=== PATIENT | female | born 1955 | race Caucasian/White ===

== ENCOUNTER 2023-08-18 12:31 | Inpatient (IN) | payer BC, MEDICAID ==
[~2023-08-18] VITALS: Ht 152.4 cm; Wt 83.0 kg
[2023-08-18 14:22] LABS: BASOPHILS # (AUTO) 0.1 X10'3 (0-0.2); BASOPHILS % (AUTO) 0.8 % (0-1); EOSINOPHILS # (AUTO) 0.1 X10'3 (0-0.9); EOSINOPHILS % (AUTO) 0.9 % (0-6); HEMOGLOBIN 14.4 g/dl (12.0-16.0); LYMPHOCYTES # (AUTO) 3.4 X10'3 (1.1-4.8); LYMPHOCYTES % (AUTO) 26.2 % (21-51); MEAN CORPUSCULAR HEMOGLOBIN 31.9 PG (27.0-31.0); MEAN CORPUSCULAR HGB CONC 34.4 g/dL (33.0-36.5); MEAN CORPUSCULAR VOLUME 92.7 FL (78-98); MONOCYTES # (AUTO) 1.1 X10'3 (0-0.9); MONOCYTES % (AUTO) 8.7 % (2-12); NEUTROPHILS # (AUTO) 8.3 X10'3 (1.8-7.7); NEUTROPHILS % (AUTO) 63.4 % (42-75); PLATELET COUNT 387 X10'3 (140-440); RED BLOOD COUNT 4.53 X10'6 (4.20-5.60); RED CELL DISTRIBUTION WIDTH 13.5 % (11.5-14.5); WHITE BLOOD COUNT 13.1 X10'3 (4.5-11.0)
[2023-08-18] MEDS: normal saline 1000ML IV soln IVB ONE (14:25)
[2023-08-18] MEDS ORDERED: iohexol 350MG/ML 100ml bottle IV ONE (14:34)
[2023-08-18 14:56] LABS: ALBUMIN 3.4 G/DL (3.4-5.0); ANION GAP 12 (8-16); BLOOD UREA NITROGEN 24 MG/DL (7-18); CALCIUM 9.3 MG/DL (8.5-10.1); CHLORIDE 101 MMOL/L (99-107); CREATININE 1.71 MG/DL (0.40-0.90); GLUCOSE 165 MG/DL (70-104); POTASSIUM 4.1 MMOL/L (3.5-5.1); SODIUM 136 MMOL/L (135-145); TOTAL CARBON DIOXIDE 22.8 MMOL/L (24-32); eCRCL 23 ML/MIN; eGFR 30 ML/MIN
[2023-08-18 14:57] LABS: MAGNESIUM 1.7 MG/DL (1.5-2.4)
[2023-08-18] MEDS: aspirin 325mg tablet PO ONE (16:53)
[2023-08-18] MEDS: normal saline 1000ml 1,000 ML IV SCH (16:59)
[2023-08-18 17:38] LABS: HEMOGLOBIN A1C 9.8 % (4.5-6.2)
[2023-08-18 18:20] LABS: BILIRUBIN,URINE NEGATIVE (Neg); CLARITY,URINE SLIGHTLY CLOUDY (Clear); COLOR,URINE YELLOW (Yellow); GLUCOSE, URINE NEGATIVE (Neg); KETONES,URINE NEGATIVE (Neg); LEUKOCYTE ESTERASE ,URINE NEGATIVE (Neg); NITRITES, URINE NEGATIVE (Neg); OCCULT BLOOD,URINE NEGATIVE (Neg); PH,URINE 5.5 (4.8-8.0); PROTEIN,URINE TRACE mg/dl (Neg); UROBILINOGEN,URINE 0.2 E.U/dL (0.2-1.0)
[2023-08-18 18:24] LABS: UA COLLECTION TYPE FOLEY CATH
[2023-08-18 18:32] LABS: SQUAMOUS EPITHELIAL CELL,UR FEW /LPF (FEW)
[2023-08-18 18:36] LABS: RBC,URINE 0-2 /HPF (0-2)
[2023-08-18 18:37] LABS: FINE GRANULAR CAST 0-3 /LPF (NEGATIVE)
[2023-08-18 18:39] LABS: BACTERIA,URINE NONE SEEN /HPF (Neg)
[2023-08-18 20:00] VITALS: RESP 17; O2SAT 96
[2023-08-18] MEDS ORDERED: glucagon, human recombinant 1mg kit SUBCUT PRN (20:05)
[2023-08-18] MEDS ORDERED: INSULIN LISPRO 100 UNIT/ML INSULN.PEN MULTI-DOSE SQ SCH (20:05)
[2023-08-18] MEDS ORDERED: dextrose 50%-water 50ml dispensing syringe IV PRN ×2 (20:05)
[2023-08-18] MEDS ORDERED: DEXTROSE 15 GM of carb/4 tabs (each vial/BOTTLE has 4 tablets) PO PRN ×2 (20:05)
[2023-08-18 20:26] VITALS: BP 138/66; PULSE 66; RESP 17; TEMP 97.8; O2SAT 98
[2023-08-18] MEDS: MESSAGE TO PHARMACY PO ONE (20:56)
[2023-08-18] MEDS: CefTRIAXone/D5W-Rocephin 1gm 50 ML IV ONE (21:29)
[2023-08-18] MEDS: insulin glargine (Lantus) pen - multi-dose SQ SCH (21:54)
[2023-08-18 22:42] VITALS: RESP 16; O2SAT 97
[2023-08-18 23:13] VITALS: BP 118/56; PULSE 59; RESP 15; TEMP 97.7; O2SAT 98
[2023-08-19 01:54] VITALS: BP 147/63; PULSE 62; RESP 15; TEMP 97; O2SAT 98
[2023-08-19 07:21] LABS: ALANINE AMINOTRANSFERASE 20 U/L (12-78); ALBUMIN 2.7 G/DL (3.4-5.0); ALBUMIN/GLOBULIN RATIO 0.8 (1.1-1.5); ALKALINE PHOSPHATASE 100 IU/L (46-116); ANION GAP 9 (8-16); ASPARTATE AMINO TRANSFERASE 18 U/L (10-37); BILIRUBIN,TOTAL 0.4 MG/DL (0.1-1.0); BLOOD UREA NITROGEN 20 MG/DL (7-18); BUN/CREATININE RATIO 16.9 (10.0-20.0); CHLORIDE 105 MMOL/L (99-107); CHOL/HDL RATIO 2.4 (0.00-4.99); CHOLESTEROL 94 MG/DL (0-200); CREATININE 1.18 MG/DL (0.40-0.90); GLUCOSE 143 MG/DL (70-104); HDL CHOLESTEROL 39 MG/DL (35-60); LDL CHOLESTEROL 32 MG/DL (50-100); POTASSIUM 3.5 MMOL/L (3.5-5.1); SODIUM 137 MMOL/L (135-145); TOTAL CARBON DIOXIDE 23.5 MMOL/L (24-32); TRIGLYCERIDES 178 MG/DL (20-135); eCRCL 34 ML/MIN; eGFR 46 ML/MIN
[2023-08-19 08:00] VITALS: RESP 18; O2SAT 98
[2023-08-19] MEDS: aspirin 325mg tablet PO SCH (08:12)
[2023-08-19] MEDS: clopidogrel 75mg tablet PO SCH (08:12)
[2023-08-19] MEDS: CefTRIAXone/D5W-Rocephin 1gm 50 ML IV SCH (08:12)
[2023-08-19 08:20] LABS: BASOPHILS % (AUTO) 0.5 % (0-1); EOSINOPHILS # (AUTO) 0.2 X10'3 (0-0.9); EOSINOPHILS % (AUTO) 1.9 % (0-6); HEMATOCRIT 36.7 % (35.0-45.0); HEMOGLOBIN 12.7 g/dl (12.0-16.0); LYMPHOCYTES # (AUTO) 2.8 X10'3 (1.1-4.8); LYMPHOCYTES % (AUTO) 31.9 % (21-51); MEAN CORPUSCULAR HEMOGLOBIN 32.1 PG (27.0-31.0); MEAN CORPUSCULAR HGB CONC 34.5 g/dL (33.0-36.5); MEAN PLATELET VOLUME 7.2 FL (7.4-10.4); MONOCYTES # (AUTO) 0.7 X10'3 (0-0.9); MONOCYTES % (AUTO) 7.5 % (2-12); NEUTROPHILS # (AUTO) 5.2 X10'3 (1.8-7.7); NEUTROPHILS % (AUTO) 58.2 % (42-75); PLATELET COUNT 289 X10'3 (140-440); RED BLOOD COUNT 3.95 X10'6 (4.20-5.60); RED CELL DISTRIBUTION WIDTH 13.6 % (11.5-14.5); WHITE BLOOD COUNT 8.9 X10'3 (4.5-11.0)
[2023-08-19] MEDS: insulin Lispro (HumaLOG) vial - multi-dose SQ SCH (09:43)
[2023-08-19 11:00] VITALS: BP 127/67; PULSE 61; RESP 18; TEMP 98.1; O2SAT 98
[2023-08-19] MEDS ORDERED: LISI20TA28 PO (14:44)
[2023-08-19] MEDS ORDERED: CLOP75TA34 PO (14:44)
[2023-08-19] MEDS ORDERED: ATOR40TA72 PO (14:44)
[2023-08-19] MEDS ORDERED: LISI30TA4 PO (14:44)
[2023-08-19] MEDS ORDERED: METF-1203 PO (14:44)
[2023-08-19 18:00] VITALS: BP 144/66; PULSE 66; RESP 16; TEMP 96.6; O2SAT 98
[2023-08-19 20:00] VITALS: RESP 17; O2SAT 95
[2023-08-19 22:00] VITALS: BP 138/63; PULSE 70; RESP 18; TEMP 97.4; O2SAT 98
[2023-08-20 02:18] VITALS: BP 142/71; PULSE 58; RESP 15; TEMP 97.1; O2SAT 97
[2023-08-20 06:00] VITALS: BP 156/76; PULSE 59; RESP 15; TEMP 98.2; O2SAT 100
[2023-08-20 08:00] VITALS: RESP 17; O2SAT 95
[2023-08-20 08:58] LABS: BASOPHILS # (AUTO) 0.1 X10'3 (0-0.2); BASOPHILS % (AUTO) 0.8 % (0-1); EOSINOPHILS # (AUTO) 0.1 X10'3 (0-0.9); HEMATOCRIT 38.5 % (35.0-45.0); HEMOGLOBIN 13.1 g/dl (12.0-16.0); LYMPHOCYTES # (AUTO) 2.5 X10'3 (1.1-4.8); LYMPHOCYTES % (AUTO) 34.8 % (21-51); MEAN CORPUSCULAR HEMOGLOBIN 31.7 PG (27.0-31.0); MEAN CORPUSCULAR VOLUME 93.1 FL (78-98); MEAN PLATELET VOLUME 7.3 FL (7.4-10.4); MONOCYTES # (AUTO) 0.5 X10'3 (0-0.9); NEUTROPHILS % (AUTO) 55.4 % (42-75); PLATELET COUNT 318 X10'3 (140-440); RED BLOOD COUNT 4.14 X10'6 (4.20-5.60); RED CELL DISTRIBUTION WIDTH 13.4 % (11.5-14.5); WHITE BLOOD COUNT 7.2 X10'3 (4.5-11.0)
[2023-08-20 09:37] LABS: ALANINE AMINOTRANSFERASE 19 U/L (12-78); ALBUMIN 2.9 G/DL (3.4-5.0); ALBUMIN/GLOBULIN RATIO 0.8 (1.1-1.5); ALKALINE PHOSPHATASE 112 IU/L (46-116); ANION GAP 9 (8-16); ASPARTATE AMINO TRANSFERASE 18 U/L (10-37); BILIRUBIN,TOTAL 0.3 MG/DL (0.1-1.0); BLOOD UREA NITROGEN 15 MG/DL (7-18); BUN/CREATININE RATIO 16.5 (10.0-20.0); CALCIUM 8.2 MG/DL (8.5-10.1); CHLORIDE 105 MMOL/L (99-107); CREATININE 0.91 MG/DL (0.40-0.90); GLUCOSE 129 MG/DL (70-104); POTASSIUM 3.5 MMOL/L (3.5-5.1); SODIUM 137 MMOL/L (135-145); TOTAL CARBON DIOXIDE 23.3 MMOL/L (24-32); TOTAL PROTEIN 6.5 G/DL (6.4-8.2); eCRCL 44 ML/MIN; eGFR 62 ML/MIN
[2023-08-20 11:00] VITALS: BP 157/77; PULSE 68; RESP 22; TEMP 98.3; O2SAT 96
[2023-08-20] MEDS ORDERED: ASPI-1265 PO (11:12)
== END 2023-08-20 17:31 | disposition home or self-care (01) | DRG 871 ==
LOC: ER 12:32 → ED HOLD 19:43 → PCU 3S 20:17
PROVIDERS: ADMIT Family Medicine; ATTEND Family Medicine
PROC: B3251ZZ Computerized Tomography (CT Scan) of Bilateral Common Carotid Arteries using Low Osmolar Contrast (ICD-10-PCS; principal; 2023-08-18)
PROC: B32G1ZZ Computerized Tomography (CT Scan) of Bilateral Vertebral Arteries using Low Osmolar Contrast (ICD-10-PCS; 2023-08-18)
PROC: B32R1ZZ Computerized Tomography (CT Scan) of Intracranial Arteries using Low Osmolar Contrast (ICD-10-PCS; 2023-08-18)
PROC: B3281ZZ Computerized Tomography (CT Scan) of Bilateral Internal Carotid Arteries using Low Osmolar Contrast (ICD-10-PCS; 2023-08-18)
DX: A41.9 Sepsis, unspecified organism (principal); G93.41 Metabolic encephalopathy; I63.9 Cerebral infarction, unspecified; G93.6 Cerebral edema; N17.0 Acute kidney failure with tubular necrosis; N39.0 Urinary tract infection, site not specified; E11.9 Type 2 diabetes mellitus without complications; I10 Essential (primary) hypertension; I66.21 Occlusion and stenosis of right posterior cerebral artery; I25.10 Atherosclerotic heart disease of native coronary artery without angina pectoris; I25.2 Old myocardial infarction; Z90.710 Acquired absence of both cervix and uterus; Z86.73 Personal history of transient ischemic attack (TIA), and cerebral infarction without residual deficits; Z83.3 Family history of diabetes mellitus; Z95.5 Presence of coronary angioplasty implant and graft
CPT/HCPCS: 36415; 70450; 70496; 70498; 70551; 71045; 80048; 80053; 80061; 81001; 82948; 83036; 83605; 83735; 84145; 84484; 85025; 87040; 87081; 87088; 92508; 92616; 93005; 93306; 96360; 97161; 97530; 99291; A4314; A6213; A6250; G0378; J0696; J1815; J3490; J7030; Q9967